=== PATIENT | male | born 1950 | race Caucasian/White ===

== ENCOUNTER 2023-10-24 17:16 | Emergency (ER) | payer OTHER ==
[2023-10-24 17:28] VITALS: BP 125/84; PULSE 92; RESP 16; TEMP 97.7; BMI 39.5
[2023-10-24] MEDS: IBUPROFEN 400 MG TABLET (FP) PO ONE (18:15)
== END 2023-10-24 20:12 | disposition home or self-care (01) ==
LOC: JERFT 17:16
DX: M25.551 Pain in right hip (principal); M54.50 Low back pain, unspecified; M79.18 Myalgia, other site; W01.0XXA Fall on same level from slipping, tripping and stumbling without subsequent striking against object, initial encounter; Y93.E5 Activity, floor mopping and cleaning
CPT/HCPCS: 72170-TC-FY; 72220-TC-FY; 73502-TC-RT-FY; 99283-25